=== PATIENT | male | born 2000 | race Caucasian/White ===

== ENCOUNTER 2018-12-05 23:54 | Emergency (ER) | payer SELFPAY ==
[~2018-12-05] VITALS: Ht 165.1 cm; Wt 99.8 kg
--- OUTSIDE RECORDS SUMMARY | 2018-12-06 | XMS REPORT ---
Author Author NIMA SENIOR Organization [facility] Address [address] [place] [address] Care Team Providers Care Expense Analyst Name Role Phone NIMA SENIOR Unavailable PROBLEMS Unknown Problems ALLERGIES No Information ENCOUNTERS Encounter Location Date Diagnosis [facility] [address] [place] [address] Jul, Drug screening, pre-employment Z02.1 IMMUNIZATIONS No Known Immunizations SOCIAL HISTORY Never Assessed REASON FOR VISIT Pre emp drug screen Extrusions PLAN OF CARE VITAL SIGNS MEDICATIONS Unknown Medications RESULTS Name Result Date Reference Range URINE DRUG SCREEN (IN HOUSE) 2018-08-01 Lot # Exp date Control COCAINE AMPH MTD THC OPIATE BENZO PCP BAR OXY MAMP BUP MDMA TCA PROCEDURES Procedure Date Ordered Result Body Site DRUG TEST PRSMV DIR OPT OBS August 01, 2018 INSTRUCTIONS MEDICATIONS ADMINISTERED No Known Medications
[2018-12-06] MEDS ORDERED: LIDOCAINE/EPI 2% 1:100,00 (XYLOCAINE) 20 ML VIAL ONE (00:16)
[2018-12-06] MEDS ORDERED: LIDOCAINE/EPI 1%-1:100,000 (XYLOCAINE) 20ML INJ ONE (00:30)
[2018-12-06] MEDS ORDERED: HYDROcodone/APAP 10 MG/325 MG (LORTAB) TAB PO ONE (00:45)
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
[2018-12-06 00:52] VITALS: BP 121/85
== END 2018-12-06 00:49 | disposition home or self-care (01) ==
LOC: ER FS 23:57
DX: S09.90XA Unspecified injury of head, initial encounter (principal); S01.01XA Laceration without foreign body of scalp, initial encounter; S01.111A Laceration without foreign body of right eyelid and periocular area, initial encounter; S01.81XA Laceration without foreign body of other part of head, initial encounter; F41.9 Anxiety disorder, unspecified; Y04.2XXA Assault by strike against or bumped into by another person, initial encounter; Y93.01 Activity, walking, marching and hiking
CPT/HCPCS: 12002; 12011

== ENCOUNTER 2018-12-16 21:44 | Emergency (ER) | payer SELFPAY ==
[~2018-12-16] VITALS: Ht 180.3 cm; Wt 81.6 kg
[2018-12-16 22:24] VITALS: BP 152/83
--- NOTE | 2018-12-16 22:25 | ED Suture Removal/Wound Check ---
Suture/Wound Re-check Suture Removal/Wound Recheck : Suture Removal/Wound Recheck: Sutures removed by RN Skin Exam: normal color Physical Exam Vital Signs Vital Signs - First Documented 12/16/18 22:00 Pulse 91 Resp 18 B/P (MAP) 152/83 Pulse Ox 99 O2 Delivery Room Air Capillary Refill : General Appearance: no apparent distress HEENT: other (healing scalp wound with intact sutures) Departure Impression Primary Impression: Removal of staple Disposition: 01 HOME, SELF-CARE Condition: Improved Departure-Patient Inst. Patient Instructions: SUTURE REMOVAL - UNCOMPLICATED, STAPLE REMOVAL - UNCOMPLICATED LEVI MILLAN DO Dec 16, 2018 22:25
== END 2018-12-16 22:26 | disposition home or self-care (01) ==
LOC: EDUNIT# 21:44 → ER FS 21:45
DX: S01.01XD Laceration without foreign body of scalp, subsequent encounter (principal); X58.XXXD Exposure to other specified factors, subsequent encounter

== ENCOUNTER 2019-12-02 15:38 | Emergency (ER) | payer SELFPAY ==
[~2019-12-02] VITALS: Ht 165.1 cm; Wt 107.1 kg
[2019-12-02 15:42] VITALS: BP 157/88
--- NOTE | 2019-12-02 16:03 | Diagnostic Imaging Report ---
INDICATION: Pain status post injury COMPARISON: None. FINDINGS: 3 views of the right ankle were obtained. There is no acute fracture or dislocation. No focal osseous lesions are seen. There is mild asymmetric lateral soft tissue swelling. There are no radiopaque foreign bodies. IMPRESSION: 1. Asymmetric mild lateral soft tissue swelling, but no evidence of underlying acute fracture or dislocation of the right ankle. Dictated by: Dictated on workstation # [id number]
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
== END 2019-12-02 16:35 | disposition home or self-care (01) ==
LOC: EDUNIT# 15:38 → ER FS 15:40
DX: S93.401A Sprain of unspecified ligament of right ankle, initial encounter (principal); F17.290 Nicotine dependence, other tobacco product, uncomplicated; X50.1XXA Overexertion from prolonged static or awkward postures, initial encounter
CPT/HCPCS: 73610; L4350

== ENCOUNTER 2020-05-21 00:30 | Emergency (ER) | payer SELFPAY ==
[2020-05-21] MEDS ORDERED: AMOXICILLIN 500 MG (POLYMOX) CAP PO STA (00:52)
[2020-05-21] MEDS ORDERED: AMOX500C2 PO (00:57)
[2020-05-21 00:58] VITALS: BP 134/84
--- NOTE | 2020-05-21 00:58 | ED EENT ---
History of Present Illness General Chief Complaint: Oral/Throat Problems Stated Complaint: SORE THROAT Nursing Triage Note: Pt complaining of a sore throat and fever History of Present Illness Date Seen by Provider: May 21, 2020 Time Seen by Provider: 00:45 Initial Comments 19-year-old male presents with sore throat and fever. Patient reports that the symptoms started yesterday morning. Patient has swollen tonsils, exudate and a history of strep throat. Patient denies any cough, nausea or vomiting. Allergies and Home Medications Allergies Coded Allergies: No Known Drug Allergies (Unverified , 12/06/18) Home Medications No Active Prescriptions or Reported Meds Patient Home Medication List Home Medication List Reviewed: Yes Review of Systems Review of Systems Constitutional: No chills Eyes: No Symptoms Reported Ears: No Symptoms Reported Throat: painful swallowing Respiratory: No cough, No short of breath Cardiovascular: No chest pain, No palpitations Gastrointestinal: No abdominal pain, No nausea, No vomiting Musculoskeletal: no symptoms reported Skin: no symptoms reported Neurological: No Symptoms Reported Hematologic/Lymphatic: No Symptoms Reported Past Pbxbmed-Wsheoi-Igerem Hx Past Med/Social Hx: Reviewed Nursing Past Med/Soc Hx Patient Social History Alcohol Use: Denies Use Recreational Drug Use: No Type Used: Smokeless Tobacco 2nd Hand Smoke Exposure: No Recent Foreign Travel: No Contact w/Someone Who Travel: No Recent Infectious Disease Expo: No Recent Hopitalizations: No Physical Abuse: No Sexual Abuse: No Immunizations Up To Date Tetanus Booster (TDap): Less than 5yrs Seasonal Allergies Seasonal Allergies: No Past Medical History Surgeries: No Respiratory: Yes Asthma Cardiac: Yes (refuses to purchase medication ) Hypertension, Irregular Heartbeat Neurological: No Genitourinary: No Gastrointestinal: No Musculoskeletal: No Endocrine: No HEENT: No Cancer: No Psychosocial: Yes Anxiety Integumentary: No Blood Disorders: No Physical Exam Vital Signs Vital Signs - First Documented 05/21/20 00:44 Temp 40.1 Pulse 150 Resp 18 B/P (MAP) 134/84 (101) Pulse Ox 99 O2 Delivery Room Air Height, Weight, BMI Height: 5'11.00" Weight: 180lbs. oz. 81.040883zw; 39.00 BMI Method:Estimated General Appearance: other (febrile) Eyes: bilateral eye normal inspection Nose: normal inspection Mouth/Throat: tonsillar swelling, other (exudate) Neck: lymphadenopathy (R), lymphadenopathy (L) Cardiovascular: normal peripheral pulses, tachycardia Respiratory: chest non-tender, lungs clear Neurologic/Psychiatric: alert, normal mood/affect, oriented x 3 Skin: normal color, warm/dry Procedures/Interventions Suture Size: 8-0 Progress/Results/Core Measures Results/Orders My Orders Orders - ADDIE WILLOUGHBY DO Ibuprofen Tablet (Motrin Tablet) (05/21/20 01:00) Amoxicillin Capsule (Polymox Capsule) (05/21/20 00:52) Vital Signs/I&O 05/21/20 00:44 Temp 40.1 Pulse 150 Resp 18 B/P (MAP) 134/84 (101) Pulse Ox 99 O2 Delivery Room Air Blood Pressure Mean: 101 Departure Impression Primary Impression: Streptococcal sore throat Disposition: HOME, SELF-CARE Condition: Stable Departure-Patient Inst. Referrals: NELL MELENDREZ MD (PCP/Family) Primary Care Physician Patient Instructions: Strep Throat (DC), Sore Throat in Adults Scripts Amoxicillin (Amoxicillin) 500 Mg Capsule 500 MG PO TID, #21 CAP 0 Refills Prov: ADDIE WILLOUGHBY DO 05/21/20 ADDIE WILLOUGHBY DO May 21, 2020 00:58
[2020-05-21] MEDS ORDERED: IBUPROFEN TABLET 200 MG TAB PO ONE (01:00)
== END 2020-05-21 00:59 | disposition home or self-care (01) ==
LOC: EDUNIT# 00:30 → ER FS 00:33
DX: J02.0 Streptococcal pharyngitis (principal)
CPT/HCPCS: 99283

== ENCOUNTER 2022-08-23 00:54 | Emergency (ER) | payer SELFPAY ==
[~2022-08-23] VITALS: Ht 165 cm; Wt 115.4 kg
[~2022-08-23 00:54] MED LIST: AMOX500C2 PO
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
[2022-08-23] MEDS ORDERED: METO-333 PO (01:55)
[2022-08-23 02:10] VITALS: BP 160/101
--- NOTE | 2022-08-23 05:09 | Diagnostic Imaging Report ---
INDICATION: Right ankle injury 3 views of the right ankle were obtained. Comparison is made to the study from 12/02/2019. There is a large os trigonum posterior to the calcaneus. There is no fracture, dislocation or other acute abnormality. The ankle mortise is intact. IMPRESSION: No acute abnormalities in the right ankle Dictated by: Dictated on workstation # [id number]
== END 2022-08-23 02:15 | disposition home or self-care (01) ==
LOC: EDUNIT# 00:54 → ER FS 00:57
DX: S93.401A Sprain of unspecified ligament of right ankle, initial encounter (principal); R00.0 Tachycardia, unspecified; F17.200 Nicotine dependence, unspecified, uncomplicated; Z28.310 Unvaccinated for COVID-19; X50.1XXA Overexertion from prolonged static or awkward postures, initial encounter
CPT/HCPCS: 73610; 93005